=== PATIENT | male | born 1970 | race Caucasian/White ===

== ENCOUNTER 2019-08-23 07:09 | Emergency (ER) | payer MEDICARE ==
[~2019-08-23] VITALS: Wt 137.4 kg
[2019-08-23] MEDS ORDERED: GLUCOPHAGE PO (07:32)
[2019-08-23] MEDS ORDERED: ALBUTEROL2.5 MG/3 M IH (07:32)
[2019-08-23] MEDS ORDERED: PROAIR HFA0.09 MG/AC IH (07:32)
[2019-08-23] MEDS ORDERED: LISINOPRIL20 MG PO (07:32)
[2019-08-23] MEDS ORDERED: HCTZ 25MG25 MG PO (07:32)
[2019-08-23 07:37] LABS: EOS # 0.2 (0.04-0.40); HEMATOCRIT 43.8 % (42.0-52.0); HEMOGLOBIN 14.4 g/dL (13.5-18.0); LYMPH# 1.3 (1.50-4.00); MEAN CELL VOLUME 90 fl (78-100); MEAN CORPUSCULAR HEMOGLOBIN 30 pg (27-31); MEAN CORPUSCULAR HGB CONC 33 g/dL (33-37); MEAN PLATELET VOLUME 9.9 fl (7.4-10.4); MONO # 0.6 (0.20-0.80); NEU # 3.6 (1.40-6.50); PLATELET COUNT 192 K/mm3 (130-400); RED BLOOD COUNT 4.88 M/mm3 (4.20-5.60); RED CELL DISTRIBUTION WIDTH 13.3 % (11.5-14.5); WHITE BLOOD COUNT 5.7 K/mm3 (4.8-10.8)
[2019-08-23 07:52] LABS: POTASSIUM 3.8 mmol/L (3.5-5.1); SODIUM 139 mmol/L (136-145)
[2019-08-23 07:54] LABS: GLUCOSE 185 mg/dL (75-110); TOTAL PROTEIN 7.1 g/dL (6.4-8.3)
[2019-08-23 07:55] LABS: CARBON DIOXIDE 24 mmol/L (22-29)
[2019-08-23 07:56] LABS: TOTAL BILIRUBIN 0.4 mg/dL (0.2-1.2)
[2019-08-23 07:59] LABS: AST-SGOT 15 U/L (5-34)
[2019-08-23 08:01] LABS: ALT/SGPT 35 U/L (0-55)
[2019-08-23 08:08] LABS: TROPONIN-I < 0.03 ng/mL (<0.030)
[2019-08-23] MEDS ORDERED: VIBRAMYCIN HYC100 MG PO (08:31)
[2019-08-23] MEDS ORDERED: PREDNISONE20 M1 PO (08:31)
[2019-08-23 09:10] VITALS: BP 124/76
== END 2019-08-23 09:00 | disposition home or self-care (01) ==
LOC: ED 07:09
PROVIDERS: Nurse Practitioner Primary Care
DX: J20.9 Acute bronchitis, unspecified (principal); E11.9 Type 2 diabetes mellitus without complications; I10 Essential (primary) hypertension; Z79.84 Long term (current) use of oral hypoglycemic drugs; J45.909 Unspecified asthma, uncomplicated
CPT/HCPCS: J1885; J2930

== ENCOUNTER 2021-02-20 08:29 | Outpatient (RCR) | payer MEDICARE, MEDICAID ==
[~2021-02-20 08:29] MED LIST: ALBUTEROL2.5 MG/3 M IH; GLUCOPHAGE PO; HCTZ 25MG25 MG PO; LISINOPRIL20 MG PO; PREDNISONE20 M1 PO; PROAIR HFA0.09 MG/AC IH; VIBRAMYCIN HYC100 MG PO
== END 2021-05-21 ==
LOC: PT
DX: M54.42 Lumbago with sciatica, left side (principal); M54.41 Lumbago with sciatica, right side; G89.29 Other chronic pain

== ENCOUNTER → 2021-06-28 | Day surgery (SDC) | payer MEDICARE | END | disposition home or self-care (01) | LOC: MSO 09:20 | DX: Z12.11 Encounter for screening for malignant neoplasm of colon (principal); K62.1 Rectal polyp; K63.9 Disease of intestine, unspecified; I10 Essential (primary) hypertension; J45.909 Unspecified asthma, uncomplicated; E11.40 Type 2 diabetes mellitus with diabetic neuropathy, unspecified; M15.9 Polyosteoarthritis, unspecified; J45.20 Mild intermittent asthma, uncomplicated; E66.01 Morbid (severe) obesity due to excess calories; Z68.42 Body mass index [BMI] 45.0-49.9, adult; Z79.899 Other long term (current) drug therapy; Z79.1 Long term (current) use of non-steroidal anti-inflammatories (NSAID); Z79.84 Long term (current) use of oral hypoglycemic drugs; Z87.891 Personal history of nicotine dependence | CPT/HCPCS: 00811; J2704; J3010; J7120 ==

== ENCOUNTER 2022-12-13 07:35 | Emergency (ER) | payer MEDICARE, MEDICAID ==
[~2022-12-13] VITALS: Ht 167.6 cm; Wt 133.8 kg
[~2022-12-13 07:35] MED LIST changes: +ATORVASTATIN CA10 MG PO; +MELOXICAM7.5 MG PO; +VITAMIN D3250 MC2 PO
[2022-12-13 08:02] LABS: BASO # 0.02 K/mm3 (0.02-0.10); EOS # 0.15 K/mm3 (0.04-0.40); EOS % 2.4 % (0.0-4.0); HEMATOCRIT 44.9 % (42.0-52.0); HEMOGLOBIN 14.8 g/dL (13.5-18.0); LYMPH# 1.82 K/mm3 (1.50-4.00); MEAN CELL VOLUME 90 fl (78-100); MEAN CORPUSCULAR HEMOGLOBIN 30 pg (27-31); MEAN CORPUSCULAR HGB CONC 33 g/dL (33-37); MEAN PLATELET VOLUME 9.4 fl (7.4-10.4); MONO # 0.64 K/mm3 (0.20-0.80); NEU # 3.65 K/mm3 (1.40-6.50); PLATELET COUNT 211 K/mm3 (130-400); RED BLOOD COUNT 4.97 M/mm3 (4.20-5.60); RED CELL DISTRIBUTION WIDTH 12.3 % (11.5-14.5); WHITE BLOOD COUNT 6.3 K/mm3 (4.8-10.8)
[2022-12-13 08:11] LABS: ALBUMIN 3.9 g/dL (3.5-5.0); POTASSIUM 3.6 mmol/L (3.5-5.1); SODIUM 140 mmol/L (136-145)
[2022-12-13 08:12] LABS: CALCIUM 9.6 mg/dL (8.3-10.5)
[2022-12-13 08:14] LABS: GLUCOSE 203 mg/dL (75-110); TOTAL PROTEIN 6.8 g/dL (6.4-8.3)
[2022-12-13 08:15] LABS: CARBON DIOXIDE 23 mmol/L (22-29); TOTAL BILIRUBIN 0.5 mg/dL (0.2-1.2)
[2022-12-13 08:19] LABS: AST-SGOT 17 U/L (5-34)
[2022-12-13 08:20] LABS: ALT/SGPT 45 U/L (0-55)
[2022-12-13 08:26] LABS: TROPONIN-I < 0.030 ng/mL (<0.030)
[2022-12-13] MEDS ORDERED: ZITHROMAX 250M250 MG PO (09:27)
[2022-12-13] MEDS ORDERED: PREDNISONE20 MG PO (09:27)
[2022-12-13 10:20] VITALS: BP 102/71
== END 2022-12-13 10:21 | disposition home or self-care (01) ==
LOC: ED 07:35
PROVIDERS: Family Medicine
DX: J18.9 Pneumonia, unspecified organism (principal); J45.901 Unspecified asthma with (acute) exacerbation; E11.65 Type 2 diabetes mellitus with hyperglycemia; E66.9 Obesity, unspecified; Z68.42 Body mass index [BMI] 45.0-49.9, adult; Z20.822 Contact with and (suspected) exposure to COVID-19
CPT/HCPCS: J0696

== ENCOUNTER 2024-01-14 06:32 | Emergency (ER) | payer MEDICARE, MEDICAID ==
[~2024-01-14] VITALS: Ht 167.6 cm; Wt 132.4 kg
[~2024-01-14 06:32] MED LIST changes: +PREDNISONE20 MG PO; +ZITHROMAX 250M250 MG PO
[2024-01-14] MEDS ORDERED: Cyclobenzaprine 10 MG TAB PO ONE (07:45)
[2024-01-14] MEDS ORDERED: NORCO 325 MG-51 TA1 PO (08:18)
[2024-01-14] MEDS ORDERED: CYCLOBENZAPRINE10 M1 PO (08:18)
[2024-01-14 08:35] VITALS: BP 141/91
== END 2024-01-14 08:39 | disposition home or self-care (01) ==
LOC: ED 06:32
DX: S33.5XXA Sprain of ligaments of lumbar spine, initial encounter (principal); G89.29 Other chronic pain; E66.9 Obesity, unspecified; Z68.42 Body mass index [BMI] 45.0-49.9, adult; X58.XXXA Exposure to other specified factors, initial encounter

== ENCOUNTER 2024-04-26 06:19 | Emergency (ER) | payer MEDICARE, MEDICAID ==
[~2024-04-26 06:19] MED LIST changes: +CYCLOBENZAPRINE10 M1 PO; +NORCO 325 MG-51 TA1 PO
[2024-04-26] MEDS ORDERED: methylPREDNISolone Sod Succ 125 MG/2 ML VIAL IM ONE (14:07)
[2024-04-26] MEDS ORDERED: Azithromycin 250 MG TAB PO ONE (14:07)
== END 2024-04-26 09:10 | disposition home or self-care (01) ==
LOC: ED 06:19
DX: J45.901 Unspecified asthma with (acute) exacerbation (principal); B34.9 Viral infection, unspecified
CPT/HCPCS: J2919

== ENCOUNTER 2024-05-27 13:22 | Emergency (ER) | payer MEDICARE, MEDICAID ==
[~2024-05-27] VITALS: Ht 167.6 cm; Wt 129.5 kg
[2024-05-27] MEDS ORDERED: oxyCODONE/Acetaminophen 10-325 MG TAB PO ONE (14:00)
[2024-05-27] MEDS ORDERED: Orphenadrine 60 MG/2ML AMP IM ONE (14:15)
[2024-05-27] MEDS ORDERED: NORCO 325 MG-51 TA1 PO (14:41)
[2024-05-27] MEDS ORDERED: CYCLOBENZAPRINE10 M1 PO (14:41)
[2024-05-27 14:55] VITALS: BP 147/80
== END 2024-05-27 14:59 ==
LOC: ED 13:22
DX: M19.011 Primary osteoarthritis, right shoulder (principal); E66.9 Obesity, unspecified
CPT/HCPCS: J2360

== ENCOUNTER → 2024-06-28 | Outpatient (CLI) | payer MEDICARE, MEDICAID ==
[2024-06-28 12:12] LABS: ALBUMIN 4.1 g/dL (3.5-5.0)
[2024-06-28 12:13] LABS: CALCIUM 9.4 mg/dL (8.3-10.5)
[2024-06-28 12:15] LABS: TOTAL PROTEIN 6.7 g/dL (6.4-8.3)
[2024-06-28 12:16] LABS: TOTAL BILIRUBIN 0.4 mg/dL (0.2-1.2)
== END ==
LOC: LAB 11:49
PROVIDERS: Family Medicine
DX: I10 Essential (primary) hypertension (principal); E11.9 Type 2 diabetes mellitus without complications

== ENCOUNTER → 2024-07-01 | Outpatient (CLI) | payer MEDICARE, MEDICAID | END | disposition still patient (30) | LOC: PT 12:57 | DX: M19.211 Secondary osteoarthritis, right shoulder (principal) ==

== ENCOUNTER 2024-07-20 08:44 | Outpatient (RCR) | payer MEDICARE, MEDICAID | END 2024-08-16 | LOC: PT | DX: M19.211 Secondary osteoarthritis, right shoulder (principal) ==

== ENCOUNTER → 2024-12-31 | Outpatient (CLI) | payer MEDICARE, MEDICAID ==
[2024-12-31 09:29] LABS: CALCIUM 9.6 mg/dL (8.3-10.5)
== END ==
LOC: LAB 08:45
PROVIDERS: Family Medicine
DX: Z12.5 Encounter for screening for malignant neoplasm of prostate (principal); E11.9 Type 2 diabetes mellitus without complications